=== PATIENT | female | born 1935 | race African-American/Black ===

== ENCOUNTER 2018-12-12 16:40 | Inpatient (IN) | payer MEDICARE, MEDICAID ==
[~2018-12-12] VITALS: Ht 175.3 cm; Wt 96.9 kg
[~2018-12-12 16:40] MED LIST: LEVO125T46 PO; OLME20TA53 PO
[2018-12-12] MEDS ORDERED: ONDANSETRON HCL 4 MG/2 ML VIAL IV ONE (18:00)
[2018-12-12] MEDS ORDERED: MORPHINE SULF INJ 2 MG/ML SYRINGE 1ML IV ONE (18:00)
[2018-12-12 18:07] LABS: Basophils # (auto) 0.1 uL; Eosinophils # (auto) 0 uL; Eosinophils % (auto) 0.2 % (0.0-7.0); Hematocrit 38.4 % (36.0-46.0); Hemoglobin 12.7 g/dL (12.2-16.2); Lymphocytes # (auto) 0.9 uL; Lymphocytes % (auto) 14.2 % (10.0-50.0); Mean Corpuscular Hemoglobin 30.7 pg (28.0-32.0); Mean Corpuscular Hgb Conc. 33.2 g/dL (32.0-36.0); Mean Corpuscular Volume 92.4 fL (80.0-100.0); Monocytes # (auto) 0.4 uL; Neutrophils # (auto) 5.1 uL; Neutrophils % (auto) 78.6 % (37.0-80.0); Nucleated Red Blood Cells % 0.1 %; Platelet Count (auto) 165 10^3/uL (140-450); Red Blood Cells 4.15 10^6/uL (4.0-5.20); Red Cell Distribution Width 13.5 % (11.8-14.3); White Blood Cell 6.5 10^3/uL (4.4-10.8)
[2018-12-12 18:18] LABS: INR 1.01 (0.9-1.15); Partial Thromboplastin Time 28.2 sec (23.64-32.05)
[2018-12-12 18:26] LABS: Albumin 4.1 g/dL (3.4-5.0); Calcium 8.5 mg/dL (8.5-10.1); Magnesium 2.4 mg/dL (1.6-2.6); Potassium 3.3 mmol/L (3.5-5.1)
[2018-12-12 18:27] LABS: BUN/Creatinine Ratio 12.7
[2018-12-12 18:33] LABS: Bilirubin, Total 0.5 mg/dL (0.2-1.0); Total Protein 8.4 g/dL (6.4-8.2)
[2018-12-12] MEDS ORDERED: ASPirin-EC 81 mg tab PO ONE (20:00)
[2018-12-12] MEDS ORDERED: POTASSIUM CHL 20 Meq TABLET PO ONE (20:00)
[2018-12-12] MEDS ORDERED: ONDANSETRON HCL 4 MG/2 ML VIAL IV PRN (22:00)
[2018-12-12] MEDS ORDERED: TEMAZEPAM 15 MG CAP PO PRN (22:00)
[2018-12-12] MEDS ORDERED: ACETAMINOPHEN 500 MG TAB PO PRN (22:00)
--- NOTE | 2018-12-13 | NUR ---
Telemetry admit from [facility] admitted to Telemetry unit after SBAR received. Patient oriented to DIMITRIS MAE RN primary RN, unit, room, bed, and unit policies regarding patient care and visiting hours. Patient now on continuous telemetry monitoring, tele box #[id number] and telemetry reading on arrival to unit is SINUS RHYTHM. Patient alert and orientated x4. No s/s of SOB or distress noted. Patient denies any pain or nausea at this time. Patient weighed by bedscale and encouraged to call if they need something. Call light left within reach. All questions and concerns addressed, patient verbalized understanding.
[2018-12-13 00:45] VITALS: BP 132/97
[2018-12-13] MEDS ORDERED: LEVO150T68 PO (01:23)
[2018-12-13] MEDS ORDERED: LISI-275 PO (01:23)
[2018-12-13] MEDS ORDERED: OMEP20TA PO (01:23)
[2018-12-13] MEDS ORDERED: MELO1TAB56 PO (01:23)
[2018-12-13 05:16] LABS: Basophils # (auto) 0.1 uL; Basophils % (auto) 0.8 % (0.0-2.0); Eosinophils # (auto) 0.1 uL; Hematocrit 37.4 % (36.0-46.0); Hemoglobin 12.6 g/dL (12.2-16.2); Lymphocytes # (auto) 2.1 uL; Lymphocytes % (auto) 27.9 % (10.0-50.0); Mean Corpuscular Hemoglobin 31.2 pg (28.0-32.0); Mean Corpuscular Hgb Conc. 33.7 g/dL (32.0-36.0); Mean Corpuscular Volume 92.4 fL (80.0-100.0); Monocytes # (auto) 0.9 uL; Monocytes % (auto) 11.5 % (0.0-12.0); Neutrophils # (auto) 4.5 uL; Neutrophils % (auto) 58.8 % (37.0-80.0); Nucleated Red Blood Cells % 0.1 %; Platelet Count (auto) 159 10^3/uL (140-450); Red Blood Cells 4.04 10^6/uL (4.0-5.20); Red Cell Distribution Width 13.5 % (11.8-14.3); White Blood Cell 7.7 10^3/uL (4.4-10.8)
[2018-12-13 05:25] VITALS: BP 134/78
[2018-12-13 05:36] LABS: Calcium 8.3 mg/dL (8.5-10.1); Potassium 3.6 mmol/L (3.5-5.1)
[2018-12-13 05:41] LABS: BUN/Creatinine Ratio 15.2
[2018-12-13] MEDS: LEVOTHYROXINE SODIUM 50 MCG TAB PO SCH (06:35)
[2018-12-13 08:11] VITALS: BP 119/66
[2018-12-13] MEDS: ASPirin-EC 81 mg tab PO SCH (09:57)
[2018-12-13] MEDS: PANTOPRAZOLE 40 MG TAB PO SCH (09:57)
[2018-12-13] MEDS: traMADol HCL 50 MG TAB PO PRN (09:57)
[2018-12-13] MEDS: LISINOPRIL 10 MG TAB PO SCH (09:58)
[2018-12-13 13:00] VITALS: BP 112/66
[2018-12-13] MEDS: SODIUM CHLORIDE 0.9% 1,000 ML IV SCH (14:15)
[2018-12-13 17:00] VITALS: BP 142/88
[2018-12-13 18:39] LABS: Urine Bacteria NONE SEEN /hpf (None Seen); Urine Blood 2+ /uL (Negative); Urine Hyaline Cast FEW /lpf (0 - 2); Urine Mucus FEW (None Seen); Urine Specific Gravity 1.023 (1.001-1.035); Urine WBC 81 /hpf (0 - 5)
--- NOTE | 2018-12-13 19:35 | NUR ---
Opening Shift Note Report received from day shift RN. Assumed care of patient. Patient awake laying in bed, alert and oriented x4. No S/S of distress/SOB noted. Patient states pain is tolerable at this time. Instructed on POC and to call for assist PRN. Bed locked in lowest position. Call light left within reach. Will continue to monitor for changes Q1hr and PRN.
[2018-12-13 22:11] VITALS: BP 142/82
[2018-12-13] MEDS: ATORVASTATIN 20 MG TAB PO SCH (22:29)
[2018-12-14] MEDS: SODIUM CHLORIDE 0.9% 1,000 ML IV SCH ×2 (03:49→16:55)
[2018-12-14 05:18] VITALS: BP 138/82
[2018-12-14] MEDS: LEVOTHYROXINE SODIUM 50 MCG TAB PO SCH (06:08)
[2018-12-14] MEDS: traMADol HCL 50 MG TAB PO PRN ×2 (06:13→18:03)
[2018-12-14 07:05] LABS: Potassium 3.4 mmol/L (3.5-5.1)
[2018-12-14 07:12] LABS: BUN/Creatinine Ratio 14.9; Calcium 8.1 mg/dL (8.5-10.1)
--- NOTE | 2018-12-14 08:16 | NUR ---
OPENING SHIFT NOTE: PATIENT AWAKE, RESTING IN BED. EVEN AND UNLABORED RESPIRATIONS NOTED NO SIGNS OF DISTRESS. PATIENT C/O ABDOMINAL PAIN RADIATING TO THE POSTERIOR FLANK 08/03. BED IN LOWEST LOCKED POSITION, UPDATED PATIENT ON PLAN OF CARE. PATIENT VERBALIZED UNDERSTANDING USE OF CALL LIGHT, PLACED WITHIN REACH. WILL CONTINUE TO MONITOR.
[2018-12-14 09:00] VITALS: BP 145/82
[2018-12-14] MEDS: ASPirin-EC 81 mg tab PO SCH (10:12)
[2018-12-14] MEDS: PANTOPRAZOLE 40 MG TAB PO SCH (10:12)
[2018-12-14] MEDS: LISINOPRIL 10 MG TAB PO SCH (10:13)
--- NOTE | 2018-12-14 10:17 | NUR ---
PT REPORTS THAT SHE WALKS FINE AND DOES NOT NEED P.T.
[2018-12-14] MEDS ORDERED: POTASSIUM CHL 20 Meq TABLET PO ONE (11:30)
[2018-12-14] MEDS ORDERED: MANNITOL FTV 25% 12.5 GM/50 ML 50 ML IV ONE (11:30)
[2018-12-14 13:00] VITALS: BP 141/92
[2018-12-14 17:00] VITALS: BP 151/86
--- NOTE | 2018-12-14 17:20 | NUR ---
PATIENT STATES SHE HAS ABDOMINAL PAIN 7/10 WITH INTERMITTENT FLANK PAIN 8/10. WILL MEDICATE ORDERED.
[2018-12-14] MEDS: MORPHINE SULF INJ 2 MG/ML SYRINGE 1ML IV PRN ×2 (18:17→23:07)
--- NOTE | 2018-12-14 18:32 | NUR ---
PAIN INCREASED: 9-10 PATIENT GUARDING, AND GRIMACING. ABDOMINAL RADIATING TO FLANK PAIN ON THE RIGHT SIDE. MORPHINE ORDERED GIVEN.
--- NOTE | 2018-12-14 19:26 | NUR ---
CARE ENDORSED TO SHERICE TYLER.
--- NOTE | 2018-12-14 19:30 | NUR ---
Opening Shift Note Assumed care of patient, awake and alert. Pt c/o pain; this RN reviewed with pt pain medication orders and length of time before med can be given. Pt VU. RN also instructed pt re. POC and to call for assist PRN. RN will continue to monitor for changes Q1hr and PRN. Bed locked in low position with HOB in Huizar's position. Nurse call light within pt's reach on bedside drawers as pt requests. Bed alarm on.
[2018-12-14] MEDS: ATORVASTATIN 20 MG TAB PO SCH (21:44)
[2018-12-14 23:37] VITALS: BP 112/87
[2018-12-15] MEDS: SODIUM CHLORIDE 0.9% 1,000 ML IV SCH ×2 (01:51→12:45)
[2018-12-15 05:43] VITALS: BP 124/77
[2018-12-15] MEDS: LEVOTHYROXINE SODIUM 50 MCG TAB PO SCH (06:20)
[2018-12-15 08:00] VITALS: BP 124/77
[2018-12-15 09:00] VITALS: BP 124/77
[2018-12-15] MEDS: ASPirin-EC 81 mg tab PO SCH (09:36)
[2018-12-15] MEDS: PANTOPRAZOLE 40 MG TAB PO SCH (09:36)
[2018-12-15] MEDS: LISINOPRIL 10 MG TAB PO SCH (09:37)
[2018-12-15] MEDS: traMADol HCL 50 MG TAB PO PRN ×2 (10:35→18:48)
[2018-12-15 13:00] VITALS: BP 129/53
[2018-12-15 17:00] VITALS: BP 143/79
[2018-12-15] MEDS: MORPHINE SULF INJ 2 MG/ML SYRINGE 1ML IV PRN (17:06)
--- NOTE | 2018-12-15 19:30 | NUR ---
Opening Shift Note Assumed care of patient, sleeping on R side. Pt presents no s/sx of pain. RN will continue to monitor for changes Q1hr and PRN. Bed locked in low position with HOB in semi-Huizar's position. Nurse call light within pt's reach. Bed alarm on.
--- NOTE | 2018-12-15 21:45 | NUR ---
Pt states that RN on day shift told her she no longer had to have IV fluids infusing and she does not want them now; refused infusion.
[2018-12-15 22:00] VITALS: BP 155/89
[2018-12-15] MEDS: ATORVASTATIN 20 MG TAB PO SCH (22:33)
[2018-12-16] MEDS: SODIUM CHLORIDE 0.9% 1,000 ML IV SCH ×2 (03:21→13:00)
--- NOTE | 2018-12-16 04:28 | NUR ---
Pt making slight movements in the bed himself refusing assistance or completely being repositioned by others. Addendum: 12/16/18 at 0430 by SHERICE CARVALHO RN Above note entered on wrong pt.
[2018-12-16 05:00] VITALS: BP 120/76
[2018-12-16 06:17] LABS: Calcium 7.9 mg/dL (8.5-10.1); Potassium 3.7 mmol/L (3.5-5.1)
[2018-12-16 06:21] LABS: BUN/Creatinine Ratio 8.3
[2018-12-16] MEDS: LEVOTHYROXINE SODIUM 50 MCG TAB PO SCH (06:35)
[2018-12-16 08:00] VITALS: BP 147/89
[2018-12-16 09:00] VITALS: BP 147/89
[2018-12-16] MEDS ORDERED: MANNITOL FTV 25% 12.5 GM/50 ML 50 ML IV ONE (09:30)
[2018-12-16] MEDS: ASPirin-EC 81 mg tab PO SCH (09:46)
[2018-12-16] MEDS: PANTOPRAZOLE 40 MG TAB PO SCH (09:47)
[2018-12-16] MEDS: LISINOPRIL 10 MG TAB PO SCH (09:47)
--- NOTE | 2018-12-16 12:56 | NUR ---
NUTRITION ASSESSMENT NOTES Please refer to link notes of nutrition screen form filed under the intervention section of the plan of care for further details. Est. Needs: 1950 kcal to 2450 kcal (20-25 kcal/kgBW), 78 gms to 97 gms pro (0.8-1.0 gms/kgBW). Will continue to monitor pertinent labs and reassess nutrient need prn Thank you. Addendum: 12/16/18 at [address] Amended: Links added.
[2018-12-16 13:00] VITALS: BP 155/87
[2018-12-16 16:54] VITALS: BP 157/95
--- NOTE | 2018-12-16 19:30 | NUR ---
Opening Shift Note Report received from day shift RN. Assumed care of patient. Patient awake sitting up on side of bed, alert and oriented x4. No S/S of distress/SOB noted. Patient denies pain or discomfort at the moment. Instructed on POC and to call for assist PRN. Bed locked in lowest position. Call light left within reach. Will continue to monitor for changes Q1hr and PRN.
[2018-12-16] MEDS: ATORVASTATIN 20 MG TAB PO SCH (21:57)
[2018-12-16 22:00] VITALS: BP 143/80
[2018-12-17] MEDS: SODIUM CHLORIDE 0.9% 1,000 ML IV SCH ×2 (01:30→13:16)
[2018-12-17 05:00] VITALS: BP 155/70
[2018-12-17 05:52] VITALS: BP 146/74
[2018-12-17 06:22] LABS: Basophils # (auto) 0.1 uL; Basophils % (auto) 1.1 % (0.0-2.0); Eosinophils # (auto) 0.2 uL; Hematocrit 36.5 % (36.0-46.0); Hemoglobin 12.2 g/dL (12.2-16.2); Lymphocytes # (auto) 1.8 uL; Lymphocytes % (auto) 28.7 % (10.0-50.0); Mean Corpuscular Hemoglobin 30.6 pg (28.0-32.0); Mean Corpuscular Hgb Conc. 33.5 g/dL (32.0-36.0); Mean Corpuscular Volume 91.3 fL (80.0-100.0); Monocytes # (auto) 0.7 uL; Monocytes % (auto) 10.4 % (0.0-12.0); Neutrophils # (auto) 3.6 uL; Neutrophils % (auto) 56.8 % (37.0-80.0); Nucleated Red Blood Cells % 0.1 %; Platelet Count (auto) 171 10^3/uL (140-450); Red Cell Distribution Width 13.4 % (11.8-14.3); White Blood Cell 6.3 10^3/uL (4.4-10.8)
[2018-12-17] MEDS: LEVOTHYROXINE SODIUM 50 MCG TAB PO SCH (06:46)
[2018-12-17 06:52] LABS: Potassium 3.4 mmol/L (3.5-5.1)
[2018-12-17 06:53] LABS: BUN/Creatinine Ratio 13.1; Calcium 8.3 mg/dL (8.5-10.1); Magnesium 2.1 mg/dL (1.6-2.6)
--- NOTE | 2018-12-17 07:55 | NUR ---
ESWL/Need cardio clearance Pre-op called regarding lithotripsy scheduled for this morning and stated there is no note from Cardio stating the patient is clear for the surgery. This nurse checked the notes as night stocker had reported the doctor stated no intervention, but this nurse was unable to find anything stating that. This nurse called to contact the doctor and was told he would be in at 0800 and would be notified to call. Addendum: 12/17/18 at 0824 by GREGORY EMMANUEL RN RN Dr. Daniel returned the call. Unsure why he was notified instead of Dr. Alexis. This nurse contacted Dr. Alexis's office and left a message regarding cardio clearance for the lithotripsy today. Waiting for call back.
[2018-12-17 09:00] VITALS: BP 140/83
[2018-12-17] MEDS: PANTOPRAZOLE 40 MG TAB PO SCH (10:21)
[2018-12-17] MEDS: LISINOPRIL 10 MG TAB PO SCH (10:22)
--- NOTE | 2018-12-17 11:24 | NUR ---
Reuben/cardio clearance needed Dr. Araiza asked about the patient and why she has not had the lithotripsy today. This nurse informed her that we need cardio clearance first. This nurse call Dr. Alexis's office and left another message for a return call.
--- NOTE | 2018-12-17 11:25 | NUR ---
Dr. Mathias/unable to do surgery Dr. Mathias called and was informed that this nurse has not heard back from Dr. Alexis's office regarding cardio clearance for lithotripsy. Dr. Mathias was upset and said to tell the family that the surgery is not being done due to this reason. This nurse also received a call from pre-op stating that the patient will need a "full cardio workup" prior to surgery due to STEMI. Waiting to hear from Dr. Alexis regarding patient's cardio status and clearance for surgery.
--- NOTE | 2018-12-17 11:38 | NUR ---
Dr. Alexis-called Dr. Alexis called and stated that the reason why he had not called sooner is because he has been in surgery all morning, since 0700, and has just now looked at his messages. He stated the patient is cleared for surgery from cardio standpoint. "Can procede to surgery. Acceptable, low risk. Normal heart function."
--- NOTE | 2018-12-17 12:45 | NUR ---
Surgery Patient was taken down in bed to pre-op for surgery. Personal belongings left in patient room. All consents were completed as well as surgical checklist.
[2018-12-17] MEDS ORDERED: ceFAZolin 1GM/50ML 50 ML IV ONE (12:50)
[2018-12-17] MEDS ORDERED: POTASSIUM CHL 20 Meq TABLET PO ONE (13:00)
[2018-12-17] MEDS ORDERED: LIDOCAINE 1% (LOCAL ANESTH.) PF 5ml SDV ONE (13:01)
[2018-12-17] MEDS ORDERED: SUCCINYLCHOLINE CHLORIDE 20 MG/ML 10ML VIAL IV ONE (13:01)
[2018-12-17] MEDS ORDERED: MIDAZOLAM HCL 1MG/1ML-2 ML VIAL ONE ×3 (13:02→14:42)
[2018-12-17] MEDS ORDERED: ROCURONIUM 10MG/ML 10ML VIAL IV ONE (13:03)
[2018-12-17] MEDS ORDERED: ETOMIDATE (2MG/ML) 20ML VIAL IV ONE (13:05)
[2018-12-17] MEDS ORDERED: METOCLOPRAMIDE HCL 5MG/ml INJ 2ml VIAL ONE (13:10)
[2018-12-17] MEDS ORDERED: fentaNYL CITRATE 100 MCG/2 ML VL ONE (13:21)
[2018-12-17] MEDS ORDERED: IOHEXOL 300 MG/ML 100ML BOTTLE IJ ONE (13:22)
[2018-12-17] MEDS ORDERED: HYDROmorphone HCL 2 MG/ML VL IV PRN (13:30)
[2018-12-17] MEDS ORDERED: NALOXONE HCL 0.4 MG/ML VIAL IV PRN (13:30)
[2018-12-17] MEDS ORDERED: ONDANSETRON HCL 4 MG/2 ML VIAL IV PRN (13:30)
[2018-12-17] MEDS ORDERED: GLYCOPYRROLATE 0.2 MG/ML 1ML VIAL ONE (14:00)
[2018-12-17] MEDS ORDERED: NEOSTIGMINE 1 MG/ML INJ (10mg/10ML VIAL) ONE (14:00)
[2018-12-17] MEDS ORDERED: ALBUTEROL SULFATE 90 MCG MDI IN ONE (14:28)
[2018-12-17] MEDS ORDERED: MIDAZOLAM HCL 1MG/1ML-2 ML VIAL IV ONE (14:32)
[2018-12-17] MEDS ORDERED: MIDAZOLAM HCL 1MG/1ML-2 ML VIAL IM ONE ×2 (14:32)
[2018-12-17] MEDS ORDERED: ALBUTEROL SULF 2.5 MG/0.5ML(0.5%) NEB SOLN NEB ONE ×2 (14:35→16:50)
[2018-12-17] MEDS ORDERED: ALBUTEROL SULF 2.5 MG/0.5ML(0.5%) NEB SOLN ONE (14:35)
[2018-12-17] MEDS: MIDAZOLAM HCL 1MG/1ML-2 ML VIAL IV PRN ×2 (14:40→14:46)
[2018-12-17] MEDS ORDERED: EPINEPHrine HCL 0.5 ML NEB NEB ONE (14:41)
[2018-12-17] MEDS ORDERED: EPINEPHrine HCL 0.5 ML NEB ONE (14:42)
[2018-12-17] MEDS ORDERED: FUROSEMIDE 20 MG/2 ML VIAL ONE (14:47)
[2018-12-17] MEDS: FUROSEMIDE 20 MG/2 ML VIAL IV PRN ×2 (14:50→15:04)
[2018-12-17] MEDS ORDERED: SODIUM CHLORIDE 0.9 % NEB SOLN 3ML NEB ONE (15:01)
[2018-12-17] MEDS ORDERED: FUROSEMIDE 20 MG/2 ML VIAL IV ONE ×2 (16:20→20:45)
[2018-12-17] MEDS ORDERED: ACETYLCYSTEINE 20%(200MG/ML) SOL 4ML NEB SCH (16:50)
[2018-12-17] MEDS ORDERED: ACETYLCYSTEINE 20%(200MG/ML) SOL 4ML NEB ONE (16:50)
--- NOTE | 2018-12-17 17:34 | NUR ---
Report from surgery This nurse was informed that patient had SOB and a lot of secretions upon waking from surgery. This nurse was informed that the patient has Graves Disease, she also has a hx of thyroidectomy (which was known). They reported that these factors caused the increased secretions. They gave breathing treatments and Lasix and said not to continue the IV fluids. They also gave Mucomist and albuterol. They said if the patient has SOB or anything, to call/page her. Will pass this information along to machinist 2nd shift.
--- NOTE | 2018-12-17 17:49 | NUR ---
Returned to unit Patient returned to the floor. Awake and alert. Oxygen at 2L NC. Incentive spirometer at bedside. Family at bedside.
--- NOTE | 2018-12-17 19:20 | NUR ---
Opening Shift Note Assumed care of patient, awake and alert. Family at bed side. No S/S of distress/SOB or pain. LAC 20G IV patent and saline locked. Bed at its lowest position, side rails up x2, call light within reach. Instructed on POC and to call for assist PRN, will continue to monitor for changes Q1hr and PRN.
--- NOTE | 2018-12-17 20:01 | NUR ---
RECEIVED CALL FROM DR GUSMAN WHOM TOOK PART IN PATIENTS CARE WHILE IN ESWL PROCEDURE. WANTING CLARIFICATION ON RN MEREDITH NOTE, AND REQUESTING PATIENT STATUS UPDATE. PER MD, RN WAS TO CALL DR WALLACE ONCE PATIENT WAS BACK IN UNIT TO BRIEF MD WALLACE ON PATIENTS ACUTE HEART FAILURE POST OP DUE TO NSTEMI AND TO GET FLUID RESTRICTION ORDERS STAT. MD WALLACE NOT PAGEABLE AT THIS MOMENT. WILL CALL HOSPITALIST HIP HOP PERFORMERS. PATIENT RESTING IN BED COMFORTABLY WITH FAMILY AT BED SIDE. NO S/S OF SOB/DISTRESS/PAIN. PATIENTS O2 SATURATION AT 96% ON 2L NC. PATIENT STATES "I FEEL OK, WAY BETTER THAN EARLIER." PATIENT DENIES ANY CHEST PAIN OR DIFFICULTY BREATHING OR CLEARING SECRETIONS. PATIENT IS CURRENTLY SALINE LOCKED. WILL CONTINUE TO CLOSELY MONITOR.
--- NOTE | 2018-12-17 20:08 | NUR ---
HOSPITALIST PAGED. AWAITING CALL BACK.
--- NOTE | 2018-12-17 20:43 | NUR ---
HOSPITALIST RETURNED PAGE NEW ORDERS RECEIVED, READ BACK AND VERIFIED. WILL IMPLEMENT.
[2018-12-17] MEDS: ATORVASTATIN 20 MG TAB PO SCH (22:00)
[2018-12-18 05:24] VITALS: BP_SYST 113; BP_SYST 118; BP_DIAS 54; BP_DIAS 63
[2018-12-18 05:39] VITALS: BP 113/63
[2018-12-18] MEDS: LEVOTHYROXINE SODIUM 50 MCG TAB PO SCH (06:25)
[2018-12-18 06:30] LABS: Basophils # (auto) 0.1 uL; Basophils % (auto) 0.8 % (0.0-2.0); Eosinophils # (auto) 0.1 uL; Eosinophils % (auto) 1.3 % (0.0-7.0); Hematocrit 36.5 % (36.0-46.0); Hemoglobin 12.4 g/dL (12.2-16.2); Lymphocytes # (auto) 1.5 uL; Lymphocytes % (auto) 22.4 % (10.0-50.0); Mean Corpuscular Hemoglobin 31.2 pg (28.0-32.0); Mean Corpuscular Hgb Conc. 34.1 g/dL (32.0-36.0); Mean Corpuscular Volume 91.5 fL (80.0-100.0); Monocytes % (auto) 14.4 % (0.0-12.0); Neutrophils % (auto) 61.1 % (37.0-80.0); Platelet Count (auto) 200 10^3/uL (140-450); Red Blood Cells 3.98 10^6/uL (4.0-5.20); Red Cell Distribution Width 13.3 % (11.8-14.3); White Blood Cell 6.6 10^3/uL (4.4-10.8)
[2018-12-18 06:54] LABS: BUN/Creatinine Ratio 11.2; Calcium 8.5 mg/dL (8.5-10.1); Potassium 3.4 mmol/L (3.5-5.1)
--- NOTE | 2018-12-18 08:00 | NUR ---
Opening Shift Note Assumed care of patient, awake and alert. No S/S of distress/SOB or pain. Patient is sitting up on side of bed. Patient said she is feeling much better than she did yesterday. Instructed on POC and to call for assist PRN, will continue to monitor for changes Q1hr and PRN.
[2018-12-18 09:00] VITALS: BP 125/79
[2018-12-18] MEDS: LISINOPRIL 10 MG TAB PO SCH (10:00)
[2018-12-18] MEDS: PANTOPRAZOLE 40 MG TAB PO SCH (10:00)
[2018-12-18] MEDS ORDERED: POTASSIUM CHL 20 Meq TABLET PO ONE (12:00)
--- NOTE | 2018-12-18 12:30 | NUR ---
Dr. Mathias/Simone macedo [place] Received return call from Dr. Mathias. He asked how the patient is doing. Reported to him that the patient is doing well and reports she is feeling much better today. She is up walking in the dow with family. No problems. Dr. Mathias stated she is cleared for discharge from his standpoint.
--- NOTE | 2018-12-18 13:00 | NUR ---
Oxygen/DC Patient does not wear oxygen at home. She was placed on oxygen after breathing difficulty after surgery yesterday. Removed oxygen and rechecked after 30 minutes. Oxygen sat was 95% on room air. Patient walking in hallway with no problem. No SOB noted or stated by patient.
--- NOTE | 2018-12-18 13:10 | NUR ---
Dr. Veliz/NE clearance Received a call from Dr. Veliz regarding patient. She asked questions about how the patient is doing today. She said from her standpoint, the patient is cleared for discharge.
--- NOTE | 2018-12-18 14:25 | NUR ---
Discharge Went over discharge paperwork with patient and answered all questions. Removed IV. Removed telemetry and sent to ICU. Removed ID bands. Patient is waiting for a ride from family to take her home.
--- NOTE | 2018-12-18 15:12 | NUR ---
assessment Patient is a 83 year old female who is alert and oriented. Patients cognitive abilities are intact. Prior to admission patient lived home with family and functioned independently. Patient informed me she is able to care for her own ADLs. Per patient she will return home to her prior living arrangements post discharge and family will transport her home. Patient informed me she has a cane for home use. Patients PCP is Dr Carlisle. Patient has no post discharge needs at this time. I informed patient she has a right to speak to a social science research assistant regarding all care. I informed patient she has a right to participate in any and all discharge planning. Patient does not have a POA and advanced directive. I have offered patient information on POA and advanced directives. I informed the patient the advantages and benefits of having an Advanced Directive. Patient verbalized understanding and agreed to discharge plan. Addendum: 12/18/18 at 1514 by Sharmila JEFFRIES Amended: Links added.
== END 2018-12-18 14:26 | disposition home or self-care (01) | DRG 682 ==
LOC: EDUNIT# 16:40 → EDBD 16:40 → ER 16:40 → TELE-WESTW 16:41
PROVIDERS: ADMIT Nurse Practitioner Family; ATTEND Internal Medicine
PROC: 0TF6XZZ Fragmentation in Right Ureter, External Approach (ICD-10-PCS; principal; 2018-12-17 12:59)
DX: N17.0 Acute kidney failure with tubular necrosis (principal); I21.A1 Myocardial infarction type 2; N13.2 Hydronephrosis with renal and ureteral calculous obstruction; E87.6 Hypokalemia; I10 Essential (primary) hypertension; K21.9 Gastro-esophageal reflux disease without esophagitis; E66.9 Obesity, unspecified; N18.9 Chronic kidney disease, unspecified; I12.9 Hypertensive chronic kidney disease with stage 1 through stage 4 chronic kidney disease, or unspecified chronic kidney disease; E03.9 Hypothyroidism, unspecified; R31.0 Gross hematuria; Z53.9 Procedure and treatment not carried out, unspecified reason; Z83.3 Family history of diabetes mellitus; Z88.5 Allergy status to narcotic agent; Z90.49 Acquired absence of other specified parts of digestive tract; Z68.31 Body mass index [BMI] 31.0-31.9, adult; Z90.710 Acquired absence of both cervix and uterus; Z98.1 Arthrodesis status
CPT/HCPCS: 36415; 71045; 74018; 74176; 76775; 80048; 80053; 80061; 81001; 82150; 82550; 83690; 83735; 83880; 84443; 84484; 85025; 85610; 85652; 85730; 86850; 86900; 86901; 87086; 93005; 93306; 94640; 94761; 96374; 96375; G0378; J0330; J0690; J2250; J2405